=== PATIENT | female | born 1955 | race Caucasian/White ===

== ENCOUNTER → 2018-07-10 | Outpatient (CLI) | payer MEDICARE, MEDICAID | END | disposition home or self-care (01) | LOC: PCVCCLINIC 15:36 | PROVIDERS: ATTEND Internal Medicine | DX: E78.5 Hyperlipidemia, unspecified (principal); E66.01 Morbid (severe) obesity due to excess calories; I10 Essential (primary) hypertension; E11.618 Type 2 diabetes mellitus with other diabetic arthropathy; E11.40 Type 2 diabetes mellitus with diabetic neuropathy, unspecified; Z79.82 Long term (current) use of aspirin; Z79.4 Long term (current) use of insulin | CPT/HCPCS: 36415; 80061 ==

== ENCOUNTER → 2021-10-26 | Outpatient (CLI) | payer MEDICARE, MEDICAID ==
--- NOTE | 2021-10-27 11:07 | RAD ---
EXAM: ULTRASOUND PELVIS INDICATION: Reason: CYST ON CT SCAN PER DR TOBIAS. / Spl. Instructions: / History: . Last menstrual period was not specified. Patient is status post hysterectomy in 1984. COMPARISON: None available. TECHNIQUE: Transabdominal sonography was performed. FINDINGS: Real-time grayscale and color Doppler evaluation of the pelvis is performed from a transabdominal madelyn albrecht. Urinary bladder is only partially fluid distended and provides somewhat of a suboptimal acoust ic window. Nevertheless, the right ovary is identified and measures 3.9 x 2.6 cm x 1.9 and demonstrat es normal color flow with no Suspicious cysts or masses. Uterus is absent. The left ovary is likewise normal measuring 3.0 x 1.4 x 1.6 cm, with no suspicious cysts or masses. No free fluid. IMPRESSION: 1. Status post hysterectomy with no suspicious ovarian cysts or masses and no free fluid. Electronically signed by: Rishabh Rosenberg MD (10/27/2021 11:05 AM) [id number]
== END ==
LOC: US 10:43
PROVIDERS: ATTEND Obstetrics & Gynecology
DX: N83.209 Unspecified ovarian cyst, unspecified side (principal); Z90.710 Acquired absence of both cervix and uterus
CPT/HCPCS: 76856